=== PATIENT | female | born 1995 | race Caucasian/White ===

== ENCOUNTER 2017-12-09 01:36 | Emergency (ER) | payer OTHER ==
[2017-12-09 01:42] VITALS: TEMP 98.1
[2017-12-09] MEDS ORDERED: ONDANSETRON DISINTEGRATING 4 MG TAB PO ONE ×2 (02:51→03:41)
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
[2017-12-09 03:54] VITALS: BP 110/60; PULSE 77; RESP 20; O2SAT 98
== END 2017-12-09 03:54 | disposition home or self-care (01) ==
DX: F10.920 Alcohol use, unspecified with intoxication, uncomplicated (principal); R11.2 Nausea with vomiting, unspecified
CPT/HCPCS: 80305; G0480